=== PATIENT | male | born 1990 | race Caucasian/White ===

== ENCOUNTER 2018-12-03 11:59 | Emergency (ER) | payer SELFPAY ==
[~2018-12-03] VITALS: Ht 177.8 cm; Wt 68.0 kg
[2018-12-03 12:06] VITALS: BP 126/84
--- NOTE | 2018-12-03 12:12 | NUR ---
PT AMBULATED TO ER BED 03
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
[2018-12-03] MEDS ORDERED: NEOMYCIN/POLYMYXIN/BACITRACIN 0.9 GM/1 PKT TP ONE (12:55)
[2018-12-03] MEDS ORDERED: LIDOCAINE 1% ***ER ONLY *** 10 MG/ML VIAL INJ ONE (12:55)
[2018-12-03] MEDS ORDERED: LIDOCAINE MPF 1% - 5 mL VIAL 5 ML ONE (13:06)
--- NOTE | 2018-12-03 13:15 | NUR ---
AAO X4 PT GIVEN WRITTEN D/C INSTRUCTIONS, NO C/O PAIN AT THIS TIME, AMBULATE TO POV
== END 2018-12-03 13:15 | disposition home or self-care (01) ==
LOC: MED 11:59
DX: S51.012A Laceration without foreign body of left elbow, initial encounter (principal); F17.200 Nicotine dependence, unspecified, uncomplicated; W22.8XXA Striking against or struck by other objects, initial encounter; Y93.89 Activity, other specified; Y92.89 Other specified places as the place of occurrence of the external cause; Y99.8 Other external cause status
CPT/HCPCS: 12001; 73080; 81002; 99283; J2001; Q0092